=== PATIENT | female | born 1945 | race Caucasian/White ===

== ENCOUNTER 2020-09-15 10:42 | Day surgery (SDC) | payer BC, SELFPAY ==
--- NOTE | 2020-09-14 11:32 | HO.ANESPROP2 ---
HPI - Anesthesia Eval Consult details Narrative: 75yo F for Colonoscopy [facility] Past Medical History Medical History (Updated 09/14/20 @ 11:34 by Regla Serrato) Benign positional vertigo Carotid artery disease HLD (hyperlipidemia) HTN (hypertension) Osteoporosis Surgical History Surgical History (Updated 09/14/20 @ 11:34 by Regla Serrato) S/P carotid endarterectomy Social History Social History (Updated 09/14/20 @ 11:34 by Regla Serrato) Smoking Status: Unknown if ever smoked Exam Exam Date and Time: September 14, 2020 1132 Assessment and Plan Assessment Anesthesia Assessment: Chart Reviewed
[2020-09-14 15:03] VITALS: BMI 22.0
[2020-09-15 11:14] VITALS: BP 148/58; PULSE 87; RESP 18; TEMP 36.3; O2SAT 99
--- NOTE | 2020-09-15 11:19 | PC.NURSE ---
MD MARTINEZ BY BEDSIDE SPEAKING TO PATIENT REGARDING HER PASSING OUT ON THE TOILET. MD MARTINEZ STATED HER PROCEDURE WAS CANCELLED AND THAT SHE WAS TO SEE HER PCP FOR A FOLLOW UP. NEURO ASSESSMENT WAS NEGATIVE. SYMM SMILE, EQUAL HAND GRASPS, 2MM BILATERAL REACTIVE PUPILS, NEUROS INTACT, LUNGS CLEAR THROUGHOUT. MD MARTINEZ BY BEDSIDE. PATIENT ENCOURAGED TO SEE HER PCP. TINA BURRELL GIVEN.
== END 2020-09-15 23:59 ==
LOC: HO.SSS 10:43
PROVIDERS: PCP Internal Medicine Geriatric Medicine; Visit Provider Internal Medicine Gastroenterology
DX: R19.5 Other fecal abnormalities (principal); Z53.8 Procedure and treatment not carried out for other reasons

== ENCOUNTER 2020-12-04 06:19 | Day surgery (SDC) | payer MEDICARE, SELFPAY ==
[2020-11-30 14:10] VITALS: BMI 22.4
--- NOTE | 2020-12-03 09:13 | P.CONAN_ITS ---
Documented by User: Regla Serrato 12/03/20 09:14 HPI - Anesthesia Eval Consult details Narrative: 75yo F for Colonoscopy COUNTS INCLUDE 234 BEDS AT THE [facility] Past Medical History Medical History (Updated 11/30/20 @ 14:13 by Mely Love) Benign positional vertigo Carotid artery disease COVID-19 vaccine administered HLD (hyperlipidemia) HTN (hypertension) Osteoporosis Surgical History Surgical History (Updated 09/14/20 @ 11:34 by Regla Serrato) S/P carotid endarterectomy Social History Social History (Updated 09/14/20 @ 11:34 by Regla Serrato) Smoking Status: Never smoker Use of substances other than those prescribed or required for medical reasons: No Have you been hit, kicked, punched, or otherwise hurt by someone within the past year? If so, by whom?: No Advance Directives: Yes (unknown) Advance Directives Information Provided: No Recently lost weight without trying: No Meds Allergies Allergy/AdvReac Type Severity Reaction Status Date / Time Penicillins Allergy unknown Verified 09/14/20 11:36 Home Medications Medication Instructions Recorded Confirmed Last Taken Type Aspir-81 81 mg PO DAILY 09/15/20 12/04/20 11/27/20 07:00 History Vitamin D3 25 mcg PO DAILY 09/15/20 11/30/20 09/14/20 History atorvastatin 40 mg PO DAILY 09/15/20 11/30/20 09/14/20 History lisinopril 20 mg PO DAILY 09/15/20 11/30/20 09/15/20 09:00 History metoprolol succinate 50 mg PO DAILY 09/15/20 12/04/20 12/04/20 04:30 History Exam Exam Date and Time: December 03, 2020 0913 Height,Weight and Vital Signs: Height 5 ft Weight 52.163 kg Assessment and Plan Assessment Anesthesia Assessment: Chart Reviewed Documented by User: Arpita Hidalgo 12/04/20 08:43 COUNTS INCLUDE 234 BEDS AT THE [facility] Past Medical History Medical History (Updated 11/30/20 @ 14:13 by Mely Love) Benign positional vertigo Carotid artery disease COVID-19 vaccine administered HLD (hyperlipidemia) HTN (hypertension) Osteoporosis Family History Family history of problems with anesthesia: No Surgical History Surgical History (Updated 09/14/20 @ 11:34 by Regla Serrato) S/P carotid endarterectomy History of Problems with Anesthesia: Yes (Slow awakening) Social History Social History (Updated 09/14/20 @ 11:34 by Regla Serrato) Smoking Status: Never smoker Use of substances other than those prescribed or required for medical reasons: No Have you been hit, kicked, punched, or otherwise hurt by someone within the past year? If so, by whom?: No Advance Directives: Yes (unknown) Advance Directives Information Provided: No Recently lost weight without trying: No Meds Allergies Allergy/AdvReac Type Severity Reaction Status Date / Time Penicillins Allergy unknown Verified 09/14/20 11:36 Home Medications Medication Instructions Recorded Confirmed Last Taken Type Aspir-81 81 mg PO DAILY 09/15/20 12/04/20 11/27/20 07:00 History Vitamin D3 25 mcg PO DAILY 09/15/20 11/30/20 09/14/20 History atorvastatin 40 mg PO DAILY 09/15/20 11/30/20 09/14/20 History lisinopril 20 mg PO DAILY 09/15/20 11/30/20 09/15/20 09:00 History metoprolol succinate 50 mg PO DAILY 09/15/20 12/04/20 12/04/20 04:30 History Exam Height,Weight and Vital Signs: Vital Signs Temp Pulse Resp BP Pulse Ox 12/04/20 07:53 98.6 F 69 20 160/63 H 100 Airway Mallampati Class: II TM Dist: >3cm Neck ROM: Full Heart: RRR Lungs: CTAB Assessment and Plan Assessment Anesthesia Assessment: Anesthesia Plan Discussed and Chart Reviewed Final Anesthetic Review NPO: Yes ASA Class: III Final Preanesthetic Review: No Changes in Pt Med Stat, Meds/Allgs Chart Reviewed, Consent Obtained/Reviewed and Anes Risks/Benef Reviewed Patient Risk: Intermediate Procedure Risk: Low Assessment/Block/Sedation in SS: Assess/Block/Sedation-SS Anesthetic Plan Anesthetic Plan: MAC: Disposition: Standard PACU
[2020-12-04] MEDS: Lactated Ringers 1,000 ML 100 ML IVCONT (07:03)
--- NOTE | 2020-12-04 07:23 | MHC.SHP ---
Pre-Procedural Eval Section B Chief Complaint: fecal abnormalities Details of Present Illness: see H&P no changes Relevant Family History (Specify if Yes): No Relevant Social History: None Present Medications: see Short Stay Collaborative assessment Medical History: No relevant PMH History of Previous Operations: No relevant previous surgery Allergies: Allergies Allergy/AdvReac Type Severity Reaction Status Date / Time Penicillins Allergy unknown Verified 09/14/20 11:36 Review of Systems Sugical H&P ROS: Negative: Constitution, Cardiovascular, Respiratory, Neurological, Psychiatric, Hem-Onc, Allergic/Immunologic, Gastrointestinal, Genitourinary, Musculoskeletal, Integumentary, Endocrine and Eyes/Ears/Nose/Throat Exam Surgical H&P Exam: Normal: HEENT, Normal: Heart, Normal: Lungs, Normal: Extremities, Normal: Abdomen, Normal: Skin and Normal: Neurological Plan Diagnosis/Plan: Unchanged I have reviewed the history and physical and performed a pertinent physical examination on my patient. No changes have occurred unless specified.
[2020-12-04 07:53] VITALS: BP 160/63; PULSE 69; RESP 20; TEMP 37; O2SAT 100
--- NOTE | 2020-12-04 07:59 | PM.OP ---
Brief Operative Note Date of Service: 12/04/20 Pre-op diagnosis: abnormal findings in stool Post-op diagnosis: same (colon polyp) Procedure: colonoscopy Surgeon: Jon Crowley Anesthesia: MAC Estimated blood loss (mL): 0 Pathology: other (polyp 60 cm) Condition: stable Disposition: PACU
[2020-12-04 08:00] VITALS: BP 93/32; PULSE 64; RESP 16; TEMP 36.3; O2SAT 99
[2020-12-04 08:15] VITALS: BP 111/45; PULSE 67; RESP 20; TEMP 36.3; O2SAT 99
--- NOTE | 2020-12-04 08:21 | OP_ITS ---
SURGEON: Jon Crowley MD INDICATIONS: Abnormal findings in stool. PREOPERATIVE DIAGNOSIS: POSTOPERATIVE DIAGNOSIS: PROCEDURE PERFORMED: Colonoscopy to the terminal ileum with snare polypectomy. ESTIMATED BLOOD LOSS: COMPLICATIONS: ANESTHESIA: ASSISTANTS: SPECIMENS: MEDICATIONS: Monitored anesthesia care. DESCRIPTION OF PROCEDURE: History and physical performed. The risks and benefits of the procedure were explained to the patient. Informed consent was obtained. The patient was placed in the left lateral decubitus position. A digital rectal exam was performed and was found to be normal. The Olympus pediatric videocolonoscope was introduced into the rectum and advanced to the cecum without difficulty. The cecum was identified by transillumination, palpation, and identification of ileocecal valve. Examination performed. The scope was removed. She tolerated the procedure well, was returned to recovery in stable condition. FINDINGS: The terminal ileum was normal. The visualized colonic mucosa was within normal limits without evidence of masses or ulcers. The quality of the prep was good. A single polyp measuring 6 mm was removed with a snare. This was located at 60 cm. No other polyps were identified. Retroflexed examination showed small internal hemorrhoids. IMPRESSION: Colon polyp. RECOMMENDATION: Follow up the biopsy results. MD JAY Llanos/ANNALEE / [id number]
== END 2020-12-04 08:52 | disposition home or self-care (01) ==
PROVIDERS: PCP Internal Medicine Geriatric Medicine; Visit Provider Internal Medicine Gastroenterology
PROC: 0DJD8ZZ Inspection of Lower Intestinal Tract, Via Natural or Artificial Opening Endoscopic (ICD-10-PCS; CPT 45378; principal; 2020-12-04 07:30)
DX: R19.5 Other fecal abnormalities (principal); D12.6 Benign neoplasm of colon, unspecified; K64.8 Other hemorrhoids; I10 Essential (primary) hypertension; Z79.82 Long term (current) use of aspirin; Z79.899 Other long term (current) drug therapy; Z88.0 Allergy status to penicillin
CPT/HCPCS: 45385; 88305